=== PATIENT | male | born 1955 | race African-American/Black ===

== ENCOUNTER 2016-09-19 11:33 | Emergency (ER) | payer MEDICARE ==
[2016-09-19 11:43] VITALS: BP 129/88
[2016-09-19] MEDS ORDERED: ACETAMINOPHEN 325 MG TABLET PO ONE (12:26)
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
== END 2016-09-19 13:17 | disposition home or self-care (01) ==
LOC: ER 11:33
DX: S59.912A Unspecified injury of left forearm, initial encounter (principal); R03.0 Elevated blood-pressure reading, without diagnosis of hypertension; W20.8XXA Other cause of strike by thrown, projected or falling object, initial encounter; Y93.H2 Activity, gardening and landscaping; Y92.007 Garden or yard of unspecified non-institutional (private) residence as the place of occurrence of the external cause; G89.29 Other chronic pain; M54.9 Dorsalgia, unspecified; M25.569 Pain in unspecified knee; M54.2 Cervicalgia; E10.9 Type 1 diabetes mellitus without complications
CPT/HCPCS: 99283; 73090; A9270

== ENCOUNTER 2017-06-28 20:15 | Emergency (ER) | payer OTHER, MEDICARE ==
--- NOTE | 2017-06-28 20:47 | ER Document Report ---
ED Medical Screen (RME) - General Chief Complaint: Chest Pain Stated Complaint: CHEST PAIN Time Seen by Provider: 06/28/17 20:46 Mode of Arrival: Wheelchair Information source: Patient, Relative TRAVEL OUTSIDE OF THE [place] IN LAST 30 DAYS: No - HPI Patient complains to provider of: cp Onset: This morning - pt with SSCP starting earlier this am. Denies radiation of pain, SOB - Related Data Allergies/Adverse Reactions: No Known Allergies Allergy (Verified 09/19/16 11:41) Past Medical History - Social History Chew tobacco use (# tins/day): No Frequency of alcohol use: None Drug Abuse: None - Past Medical History Cardiac Medical History: Reports: Hx Hypertension Endocrine Medical History: Reports: Hx Diabetes Mellitus Type 1 - REPORTS NO LONGER TAKING INSULIN-10/06 Renal/ Medical History: Denies: Hx Peritoneal Dialysis Past Surgical History: Reports: Hx Orthopedic Surgery - C3-4 surgery, knee surgery - Immunizations Hx Diphtheria, Pertussis, Tetanus Vaccination: Yes Physical Exam - Vital signs Vitals: Temp Pulse Resp BP Pulse Ox 98.8 F 83 16 129/84 H 96 06/28/17 20:31 06/28/17 20:31 06/28/17 20:31 06/28/17 20:31 06/28/17 20:31 Course - Vital Signs Vital signs: Temp Pulse Resp BP Pulse Ox 98.8 F 83 16 129/84 H 96 06/28/17 20:31 06/28/17 20:31 06/28/17 20:31 06/28/17 20:31 06/28/17 20:31
--- NOTE | 2017-06-28 21:20 | RADIOLOGY REPORT (SQ) ---
EXAM DESCRIPTION: CHEST PA/LAT COMPLETED DATE/TIME: 06/28/2017 9:11 pm REASON FOR STUDY: cp COMPARISON: None. EXAM PARAMETERS: NUMBER OF VIEWS: two views TECHNIQUE: Digital Frontal and Lateral radiographic views of the chest acquired. RADIATION DOSE: NA LIMITATIONS: none FINDINGS: LUNGS AND PLEURA: No opacities, masses or pneumothorax. No pleural effusion. MEDIASTINUM AND HILAR STRUCTURES: No masses or contour abnormalities. HEART AND VASCULAR STRUCTURES: Heart normal size. No evidence for failure. BONES: No acute findings. HARDWARE: None in the chest. OTHER: No other significant finding. IMPRESSION: NO SIGNIFICANT RADIOGRAPHIC FINDING IN THE CHEST. TECHNICAL DOCUMENTATION: JOB ID: [id number] [employer]- All Rights Reserved
[2017-06-28] MEDS: ASPIRIN 81 MG TABLET, CHEWABLE PO ONE (22:14)
--- NOTE | 2017-06-28 22:14 | ER Document Report ---
ED General - General Chief Complaint: Chest Pain Stated Complaint: CHEST PAIN Time Seen by Provider: 06/28/17 20:46 Mode of Arrival: Wheelchair Notes: Patient is a 62-year-old male who presents with complaint of pain over the left anterior chest. He says it is worse with movement. He also has it when sitting still but when he gets up and moves around hurts. Some sharp pain is easily reproducible when he pushes over the area. Says he did have a little bit of a cough but that has been mild. He said he had similar pain approximately a week ago. He has no history of coronary disease. No family history of coronary disease. He is a diabetic. He does have a history of some hypertension. He does not smoke. Does not drink alcohol. Has had no recent fevers. No vomiting. No diarrhea. Patient also mentions that for a long time he has had some difficulty urinating. He says when he goes to pee he only able to urinate out the small amount. He says he did see Dr. Smith, urologist, for this last year. At that time they were on hold off on using an alpha-zunilda. He says symptoms have since worsened. He has not mentioned the worsening to his [place] doctor or Dr. Smith. He says as far as he knows his prostate cancer markers have been normal. TRAVEL OUTSIDE OF THE [place] IN LAST 30 DAYS: No - Related Data Allergies/Adverse Reactions: No Known Allergies Allergy (Verified 09/19/16 11:41) Past Medical History - General Information source: Patient, Relative - Social History Smoking Status: Never Smoker Chew tobacco use (# tins/day): No Frequency of alcohol use: None Drug Abuse: None Family History: Reviewed & Not Pertinent Patient has suicidal ideation: No Patient has homicidal ideation: No - Past Medical History Cardiac Medical History: Reports: Hx Hypertension Endocrine Medical History: Reports: Hx Diabetes Mellitus Type 1 - REPORTS NO LONGER TAKING INSULIN-10/06 Renal/ Medical History: Denies: Hx Peritoneal Dialysis Past Surgical History: Reports: Hx Orthopedic Surgery - C3-4 surgery, knee surgery - Immunizations Hx Diphtheria, Pertussis, Tetanus Vaccination: Yes Review of Systems - Review of Systems Notes: My Normal Review Basic REVIEW OF SYSTEMS: CONSTITUTIONAL : Denies fever, chills, or sweats. Denies recent illness. EENT: Denies eye, ear, throat, or mouth pain or symptoms. Denies nasal or sinus congestion. CARDIOVASCULAR: Has anterior chest pain. RESPIRATORY: Denies cough, cold, or chest congestion. Denies shortness of breath, difficulty breathing, or wheezing. GASTROINTESTINAL: Denies abdominal pain. Denies nausea, vomiting, or diarrhea. MUSCULOSKELETAL: Denies neck or back pain or joint pain or swelling. SKIN: Denies rash or skin lesions. NEUROLOGICAL: Denies altered mental status or loss of consciousness. Denies headache. Denies weakness or paralysis or loss of use of either side. Denies problems with gait or speech. Denies sensory or motor loss. ALL OTHER SYSTEMS REVIEWED AND NEGATIVE. Physical Exam - Vital signs Vitals: Temp Pulse Resp BP Pulse Ox 98.8 F 83 16 129/84 H 96 06/28/17 20:31 06/28/17 20:31 06/28/17 20:31 06/28/17 20:31 06/28/17 20:31 - Notes Notes: General Appearance: Well nourished, alert, cooperative, no acute distress, mild to moderate obvious discomfort. Vitals: reviewed, See vital signs table. Eyes: PERRL, EOMI, Conjuctiva clear Mouth: No decreasd moisture Throat: No tonsillar inflammation, No airway obstruction, No lymphadenopathy Chest wall: Pain is very easily reproducible to palpation over the left anterior chest wall at the costochondral junction. Patient says the pain reproduced with pushing this exact same pain that he has that has brought him to the ER. This pain is easily reproducible with even light pressure applied to the area. Lungs: No wheezing, No rales, No rhonci, No accessory muscle use, good air exchange bilaterally. Heart: Normal rate, Regular rythm, No murmur, no rub Abdomen: Normal BS, soft, No rigidity, No abdominal tenderness, No guarding, no rebound Extremities: strength 5/5 in all extremities, good pulses in all extremities, no swelling or tenderness in the extremities, no edema. Skin: warm, dry, appropriate color, no rash Neuro: speech clear, oriented x 3, normal affect, responds appropriately to questions. Course - Re-evaluation Re-evalutation: 06/29/17 02:15 Patient's EKG troponin and delta troponin were negative. Patient looks very well. His chest pain is pinpoint over the left costochondral junction easily reproducible palpation. Suspect it is musculoskeletal. He does have risk factors. Based on his age and risk factors he has a heart score of 3. I talked him at length about this and informed him that this means he has a 1-1/2 % chance of a serious event in the next 6 weeks. I informed him that I therefore feel safe for him to follow-up outpatient with development officer for reevaluation. Patient is very agreeable to this and feels well and agrees with the plan. I will also have the patient follow back up with his urologist, Dr. Smith, in regards to his urinary frequency. Patient's urinalysis does not show signs of infection. Patient strongly encouraged to return to ER immediately if he has worsening chest pain, change in location of chest pain, difficulty breathing, fevers, or feels unwell. Patient agrees with plan and will be discharged home. Dictation of this chart was performed using voice recognition software; therefore, there may be some unintended grammatical errors. - Vital Signs Vital signs: Temp Pulse Resp BP Pulse Ox 98.8 F 83 12 134/85 H 98 06/28/17 20:31 06/28/17 20:31 06/28/17 22:23 06/28/17 22:23 06/28/17 22:23 - Laboratory Result Diagrams: 06/28/17 22:20 06/28/17 22:20 Laboratory results interpreted by me: 06/28/17 06/28/17 06/28/17 22:20 22:20 23:48 Plt Count 133 L Sodium 135.7 L Glucose 386 H Urine Glucose (UA) >=500 H - EKG Interpretation by Me Additional EKG results interpreted by me: 06/28/17 22:13 EKG is reviewed and interpreted by me. EKG shows normal sinus with a rate of [address] segment elevation or depression. No ischemic T-wave inversions. NE interval, QRS duration, QTc intervals are within normal range. No old EKG available for comparison. Discharge - Discharge Clinical Impression: Urinary urgency, Hyperglycemia Chest pain Qualifiers: Chest pain type: unspecified Qualified Code(s): R07.9 - Chest pain, unspecified Condition: Good Disposition: HOME, SELF-CARE Additional Instructions: Your EKG and blood work looking at your heart is normal appearing. I suspect your pain is musculoskeletal based on the fact that it is easily reproducible with palpation and your cardiac workup is normal. Despite your negative workup it is still very important you follow up closely with the development officer for revaluation and possible out patient stress testing. Please return to the ER immediately if your pain worsens, changes in locatin, you have difficulty breathing, or if you feel that you are worsening. Please follow up with Dr. Smith in regards to your urinary difficulties. Referrals: RADHA LUGO MD [ACTIVE STAFF] - 06/30/17
[2017-06-28 22:37] LABS: ABSOLUTE BASOPHILS # (AUTO) 0.1 10^3/uL (0.0-0.2); ABSOLUTE EOSINOPHILS # (AUTO) 0.1 10^3/uL (0.0-0.6); ABSOLUTE LYMPHOCYTES (AUTO) 2.8 10^3/uL (0.5-4.7); ABSOLUTE MONOCYTES (AUTO) 0.6 10^3/uL (0.1-1.4); ABSOLUTE NEUT (AUTO) 5.9 10^3/uL (1.7-8.2); EOSINOPHILS % (AUTO) 0.9 % (0-6); HEMATOCRIT 43.4 % (37.9-51.0); HEMOGLOBIN 14.8 g/dL (13.5-17.0); LYMPHOCYTES % (AUTO) 29.3 % (13-45); MEAN CORPUSCULAR HEMOGLOBIN 28.4 pg (27.0-33.4); MEAN CORPUSCULAR HGB CONC 34.1 g/dL (32.0-36.0); MEAN CORPUSCULAR VOLUME 83 fl (80-97); PLATELET COUNT 133 10^3/uL (150-450); RED BLOOD COUNT 5.21 10^6/uL (4.35-5.55); RED CELL DISTRIBUTION WIDTH 13.6 % (11.5-14.0); SEGMENTED NEUTROPHILS % (AUTO) 62.8 % (42-78); TOTAL CELLS COUNTED % (AUTO) 100 %; WHITE BLOOD COUNT 9.5 10^3/uL (4.0-10.5)
[2017-06-28] MEDS ORDERED: HYDROCODONE/ACETAMINOPHEN 5-325 MG TABLET PO ONE (22:39)
--- NOTE | 2017-06-28 22:40 | EKG REPORT ---
SEVERITY:- OTHERWISE NORMAL ECG - SINUS RHYTHM BORDERLINE LEFT AXIS DEVIATION : Confirmed by: Sydney Cunningham 28-Jun-2017 22:39:47
[2017-06-28 22:52] LABS: ALANINE AMINOTRANSFERASE 25 U/L (21-72); ALBUMIN 4.6 g/dL (3.5-5.0); ALKALINE PHOSPHATASE 93 U/L (38-126); ANION GAP 14 (5-19); ASPARTATE AMINO TRANSFERASE 18 U/L (17-59); BILIRUBIN,DIRECT 0.2 mg/dL (0.0-0.4); BILIRUBIN,TOTAL 0.6 mg/dL (0.2-1.3); BLOOD UREA NITROGEN 12 mg/dL (7-20); CALCIUM 9.9 mg/dL (8.4-10.2); CARBON DIOXIDE 24 mmol/L (22-30); CHLORIDE 98 mmol/L (98-107); CREATINE KINASE 159 U/L (55-170); GLUCOSE 386 mg/dL (75-110); POTASSIUM 4.8 mmol/L (3.6-5.0); SODIUM 135.7 mmol/L (137-145); TOTAL PROTEIN 7.5 g/dL (6.3-8.2)
[2017-06-28 23:04] LABS: CREATINE KINASE MB 0.56 ng/mL (<4.55)
[2017-06-28 23:15] LABS: TROPONIN I < 0.012 ng/mL
[2017-06-29 00:08] LABS: APPEARANCE,URINE CLEAR; BILIRUBIN,URINE NEGATIVE (NEGATIVE); COLOR,URINE YELLOW; GLUCOSE, URINE >=500 mg/dL (NEGATIVE); KETONES,URINE NEGATIVE (NEGATIVE); LEUKOCYTE ESTERASE,URINE NEGATIVE (NEGATIVE); NITRITE,URINE NEGATIVE (NEGATIVE); PROTEIN,URINE NEGATIVE (NEGATIVE); URINE SPECIFIC GRAVITY 1.032; UROBILINOGEN,URINE NEGATIVE mg/dL (<2.0)
[2017-06-29] MEDS: INSULIN REG, HUMAN 100 UNIT/ML 3 ML VIAL (PYX) SUBCUT ONE (00:18)
[2017-06-29] MEDS: KETOROLAC TROMETHAMINE INJ/PF 30 MG/1 ML SDV IV ONE (00:21)
[2017-06-29 02:43] VITALS: BP 121/91
== END 2017-06-29 02:48 | disposition home or self-care (01) ==
LOC: ER 20:15
DX: R07.89 Other chest pain (principal); E10.65 Type 1 diabetes mellitus with hyperglycemia; R05 Cough; I10 Essential (primary) hypertension; R35.0 Frequency of micturition; R39.15 Urgency of urination
CPT/HCPCS: 93005; 99285; 96374; 36415; 82553; 82962; 82550; 85025; 80053; 81001; 84484; 71046; 93010; J1885; J1815

== ENCOUNTER 2017-10-21 12:13 | Emergency (ER) | payer OTHER, MEDICARE ==
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
[2017-10-21] MEDS ORDERED: OXYCODONE-ACETAMINOPHEN 5-325 MG TABLET PO ONE (14:29)
[2017-10-21 14:32] VITALS: BP 132/82
== END 2017-10-21 14:46 | disposition home or self-care (01) ==
LOC: ER 12:13
DX: M25.512 Pain in left shoulder (principal); R10.32 Left lower quadrant pain; R10.31 Right lower quadrant pain; V87.7XXA Person injured in collision between other specified motor vehicles (traffic), initial encounter; E10.9 Type 1 diabetes mellitus without complications
CPT/HCPCS: 99284; 82962; 73030; L3650

== ENCOUNTER → 2017-11-04 | Outpatient (CLI) | payer MEDICARE ==
--- NOTE | 2017-11-06 10:51 | RADIOLOGY REPORT (SQ) ---
EXAM DESCRIPTION: MRI LT UPPER JOINT WITHOUT COMPLETED DATE/TIME: 11/04/2017 1:17 pm REASON FOR STUDY: PAIN IN LEFT SHOULDER (M25.512) M25.512 PAIN IN LEFT SHOULDER COMPARISON: Left shoulder plain films 10/21/2017 TECHNIQUE: Left shoulder images acquired and stored on PACS. Multiplanar imaging to include fat sens itive sequences such as T1, water sensitive sequences such as FST2/STIR, cartilage sensitive sequence s such as FSPD/gradient-echo sequences. LIMITATIONS: None. FINDINGS: BONE MARROW AND CORTEX: No marrow signal abnormality worrisome for occult fracture. There is metallic artifact along the superior glenoid labrum from old superior labral repair. Artifact ov er the anterior right humeral head at the upper edge bicipital groove likely from remote prior long-h ead biceps tenodesis JOINT OR BURSAL EFFUSION: Small amount of fluid in the subacromial/subdeltoid bursa GLENO-HUMERAL ARTICULATION: Normal articulation. No subluxation. No cystic change. No osteophytes or cartilage loss. ACROMION AND AC JOINT: Type 2 acromion with very bulky acromioclavicular joint bony spurring, synovi al thickening. There is edema in the distal clavicle and acromion, with narrowing of the subacromial space best shown on sagittal images 7-14, and coronal images 8-13. ROTATOR CUFF AND INTERVAL: Rotator interval is diffusely indistinct from prior tear. This is best sh own on sagittal fat-sat T2 images 5-12. There is tendinopathy along the upper half of the subscapula ris tendon. Mild undersurface tendinopathy is present along the anterior edge, distal supraspinatus tendon. Mild diffuse undersurface tendinopathy of the infraspinatus tendon. LABRUM AND BICEPS LABRAL COMPLEX: Superior labrum is diffusely fragmented. Old labrum tacks are pr esent. Inferior labrum intact. Intra-articular long head biceps tendon not identified, likely remot e prior tenodesis in the upper aspect bicipital groove. REMAINDER OF LABRUM AND IGHL : No gross tear or paralabral cyst formation. Labral evaluation is less than optimal without joint distention. No thickening of IGHL to suggest adhesive capsulitis. PERIARTICULAR AND ADJACENT SOFT TISSUES: No masses or abnormal nodes. OTHER: No other significant finding. IMPRESSION: Bulky acromioclavicular joint hypertrophy and arthritis Evidence of prior long head biceps tendon and superior labral surgery. Inferior labrum intact Tendinopathy in the superior half of the subscapularis tendon and distal most anterior attachment sup raspinatus tendon. Mild undersurface tendinopathy distal infraspinatus tendon. TECHNICAL DOCUMENTATION: JOB ID: [id number] [employer]- All Rights Reserved Reading location - IP/workstation name: [email or web address]
== END ==
LOC: RAD 12:28
PROVIDERS: ATTEND Orthopaedic Surgery
DX: M25.512 Pain in left shoulder (principal); M13.812 Other specified arthritis, left shoulder

== ENCOUNTER 2017-11-09 20:36 | Emergency (ER) | payer OTHER, MEDICARE ==
[2017-11-09 21:04] VITALS: BP 129/82
--- NOTE | 2017-11-09 22:18 | ER Document Report ---
ED Foreign Body - General TRAVEL OUTSIDE OF THE [place] IN LAST 30 DAYS: No <ISAÍAS FERRARO - Last Filed: 11/09/17 22:18> <SARAH PEREZ - Last Filed: 11/10/17 06:11> - General Chief Complaint: Foreign Body in Eye Stated Complaint: EYE PROBLEM Time Seen by Provider: 11/09/17 22:12 Notes: Patient is a 62-year-old male comes emergency department for chief complaint of possible foreign body and possible scratch to his right eye. He states he was working outside, felt something uncomfortable in his eye, his eye started watering, he went into the house and his noted a small piece of what looked like a splinter, she states that she wiped his eye with a damp paper towel and thinks she removed it but he is still complaining of pain. He denies any visual loss, he does not wear contacts, he denies any discolored discharge, he denies any other complaints. (SARAH PEREZ) - Related Data Allergies/Adverse Reactions: No Known Allergies Allergy (Verified 10/21/17 12:39) Past Medical History - Social History Smoking Status: Never Smoker Family History: Reviewed & Not Pertinent Patient has suicidal ideation: No Patient has homicidal ideation: No - Past Medical History Cardiac Medical History: Reports: Hx Hypertension Endocrine Medical History: Reports: Hx Diabetes Mellitus Type 1 Renal/ Medical History: Denies: Hx Peritoneal Dialysis Past Surgical History: Reports: Hx Orthopedic Surgery - C3-4 surgery, knee surgery - Immunizations Hx Diphtheria, Pertussis, Tetanus Vaccination: Yes <ISAÍAS FERRARO - Last Filed: 11/09/17 22:18> - General Information source: Patient - Social History Smoking Status: Never Smoker Frequency of alcohol use: None Lives with: Family - Immunizations Hx Diphtheria, Pertussis, Tetanus Vaccination: Yes <SARAH PEREZ - Last Filed: 11/10/17 06:11> Review of Systems - Review of Systems Constitutional: No symptoms reported EENT: See HPI Cardiovascular: No symptoms reported Respiratory: No symptoms reported Gastrointestinal: No symptoms reported Genitourinary: No symptoms reported Male Genitourinary: No symptoms reported Musculoskeletal: No symptoms reported Skin: No symptoms reported Hematologic/Lymphatic: No symptoms reported Neurological/Psychological: No symptoms reported <SARAH PEREZ - Last Filed: 11/10/17 06:11> Physical Exam <ISAÍAS FERRARO - Last Filed: 11/09/17 22:18> <SARAH PEREZ - Last Filed: 11/10/17 06:11> - Vital signs Vitals: Temp Pulse Resp BP Pulse Ox 98.5 F 92 16 129/82 H 96 11/09/17 21:03 11/09/17 21:03 11/09/17 21:03 11/09/17 21:03 11/09/17 21:03 - Notes Notes: GENERAL: Alert, interacts well. No acute distress. HEAD: Normocephalic, atraumatic. EYES: Irritation of the sclera of the right eye, a tiny foreign body noted over the inferior aspect on the cornea, this was easily removed completely with a Q- tip, no embedded foreign body, negative Maryam sign, questionable tiny amount of fluorescein uptake over the sclera but not over the cornea, normal pupil, no hyphema, normal eye examination otherwise. ENT: Oral mucosa moist, tongue midline. NECK: Full range of motion. Supple. Trachea midline. LUNGS: Clear to auscultation bilaterally, no wheezes, rales, or rhonchi. No respiratory distress. HEART: Regular rate and rhythm. No murmur ABDOMEN: Soft, non-tender. Non-distended. Bowel sounds present in all 4 quadrants. EXTREMITIES: Moves all 4 extremities spontaneously. No edema, normal radial and dorsalis pedis pulses bilaterally. No cyanosis. BACK: no cervical, thoracic, lumbar midline tenderness. No saddle anesthesia, normal distal neurovascular exam. NEUROLOGICAL: Alert and oriented x3. Normal speech. [cranial nerves II through XII grossly intact]. PSYCH: Normal affect, normal mood. SKIN: Warm, dry, normal turgor. No rashes or lesions noted. (SARAH PEREZ) Course <ISAÍAS FERRARO - Last Filed: 11/09/17 22:18> <SARAH PEREZ - Last Filed: 11/10/17 06:11> - Re-evaluation Re-evalutation: Small foreign body removed easily with Q-tip, no embedded foreign body, no significant signs of trauma, questionable scratch over the sclera, no additional concerns or abnormalities noted, treated with Polytrim which he was sent home with, discussed ophthalmology follow-up and return precautions, patient states understanding and agreement. (SARAH PEREZ) - Vital Signs Vital signs: Temp Pulse Resp BP Pulse Ox 98.5 F 92 16 129/82 H 96 11/09/17 21:03 11/09/17 21:03 11/09/17 21:03 11/09/17 21:03 11/09/17 21:03 Discharge <ISAÍAS FERRARO - Last Filed: 11/09/17 22:18> <SARAH PEREZ - Last Filed: 11/10/17 06:11> - Discharge Clinical Impression: Eye foreign body Qualifiers: Encounter type: initial encounter Laterality: right Qualified Code(s): T15.91XA - Foreign body on external eye, part unspecified, right eye, initial encounter Condition: Stable Disposition: HOME, SELF-CARE Additional Instructions: Examination showed a small foreign body remaining in the eye and what appears to be a small abrasion to the white part of your eye. Use antibiotic drops given, 1 drop 4 times a day for the next 5 days, use the pain medication given tonight if needed. This should resolve with time. Follow-up with ophthalmology for recheck and additional management. Return if you worsen including loss of vision, swelling, discolored discharge, or any other concerning symptoms. Referrals: ALVAREZ BURT MD [ACTIVE STAFF] - Follow up tomorrow
[2017-11-09] MEDS ORDERED: TETRACAINE HCL 0.5% OPH SOLN 2 ML ONE (22:58)
[2017-11-09] MEDS ORDERED: HYDROCODONE/ACETAMINOPHEN 5-325 MG (6 TAB/ER DISP) PO PRN (23:08)
[2017-11-09] MEDS ORDERED: TETRACAINE HCL 0.5% OPH SOLN 2 ML OD ONE (23:08)
[2017-11-09] MEDS ORDERED: POLYMYXIN B SULFATE/TMP OPH SOLN 10 ML OD ONE (23:09)
[2017-11-09] MEDS ORDERED: POLYMYXIN B SULFATE/TMP OPH SOLN 10 ML ONE (23:33)
== END 2017-11-10 00:06 | disposition home or self-care (01) ==
LOC: ER 20:36
DX: T15.01XA Foreign body in cornea, right eye, initial encounter (principal); X58.XXXA Exposure to other specified factors, initial encounter; Y92.009 Unspecified place in unspecified non-institutional (private) residence as the place of occurrence of the external cause; E10.9 Type 1 diabetes mellitus without complications; I10 Essential (primary) hypertension
CPT/HCPCS: 99283; J3490

== ENCOUNTER 2017-12-19 00:18 | Emergency (ER) | payer OTHER, MEDICARE ==
--- NOTE | 2017-12-19 00:42 | ER Document Report ---
ED General - General Chief Complaint: High Blood Sugar Stated Complaint: BLOOD SUGAR ISSUE Time Seen by Provider: 12/19/17 00:31 Notes: Patient is a 62-year-old male who presents with complaint of altered mental status. says altered mental status has been ongoing since yesterday ( Tuesday) morning. Sorry night she notices blood sugars running high. She says he has been taking his insulin as prescribed. The only insulin he has not had this tonight's Lantus dose. She is unsure the dose of Lantus. Blood sugar has since improved tonight. Blood sugar was 400 and a months. It is now in the 200s. She denies any recent fevers. Patient himself is somnolent but is able to wake up answer some questions. He denies any pain except for slight headache. He denies any chest pain. Denies any fevers. No abdominal pain. No vomiting. Patient's says this has never happened to him before and this is completely atypical for him. TRAVEL OUTSIDE OF THE [place] IN LAST 30 DAYS: No - Related Data Allergies/Adverse Reactions: No Known Allergies Allergy (Verified 10/21/17 12:39) Past Medical History - Social History Smoking Status: Never Smoker Frequency of alcohol use: None Drug Abuse: None Family History: Reviewed & Not Pertinent - Past Medical History Cardiac Medical History: Reports: Hx Hypertension Endocrine Medical History: Reports: Hx Diabetes Mellitus Type 1 Renal/ Medical History: Denies: Hx Peritoneal Dialysis Past Surgical History: Reports: Hx Orthopedic Surgery - C3-4 surgery, knee surgery - Immunizations Hx Diphtheria, Pertussis, Tetanus Vaccination: Yes Physical Exam - Vital signs Vitals: Pulse Ox 96 12/19/17 00:20 - Notes Notes: General Appearance: Well nourished, somnolent but arousable., cooperative, no acute distress, no obvious discomfort. Vitals: reviewed, See vital signs table. Head: no swelling or tenderness to the head Eyes: PERRL, EOMI, Conjuctiva clear Mouth: No decreasd moisture Throat: No tonsillar inflammation, No airway obstruction, No lymphadenopathy Neck: Supple, no neck tenderness Lungs: No wheezing, No rales, No rhonci, No accessory muscle use, good air exchange bilaterally. Heart: Normal rate, Regular rythm, No murmur, no rub Abdomen: Normal BS, soft, No rigidity, No abdominal tenderness, No guarding, no rebound, no abdominal masses, no organomegaly Extremities: strength 5/5 in all extremities, good pulses in all extremities, no swelling or tenderness in the extremities, no edema. Skin: warm, dry, appropriate color, no rash Neuro: speech clear, oriented x 3, normal affect, responds appropriately to questions. Patient lying in bed with eyes closed. Patient is somnolent but will awaken to verbal stimuli. He will answer questions but then will close his eyes soon as he is done answering questions. Cranial nerves II through XII are intact. He has good strength in all 4 extremities. Gait not tested. Course - Re-evaluation Re-evalutation: 12/19/17 02:36 Patient is now awake and alert and completely back to his normal baseline. Patient feels as his blood sugar improved his mental status also improved. His agrees. His urine drug screen does show benzodiazepines. Patient says he occasionally takes Valium for sleep but says he has not had this in over 24 hours does not think this is playing a role. He did have a increasing his gabapentin but this was a few months ago and has not had any problems since increase until the last 24 hours. Patient again denies any recent fevers or illness and denies any pain at this time. CT scan of his head is not normal. The only lab that is pending at this time is his troponin. I encourage patient to let me watch him until 6 AM to make sure that his mental status and neurologic function continues to be back to baseline without any relapses. Patient agrees with this plan. 12/20/17 01:17 On my 6am exam the patient's mental status continued to be at normal baseline. Is able stand up without any balance issues and move around normally. He continued very well and was symptom-free at that time. Taking the Valium but I suspect that he may have accidentally taken his volume based on the somnolence he had when he first arrived. His presentation is very similar to that of a accidental benzo use or overdose. This possibly could be related to his high blood sugars; however, I think is less likely being that when he arrived his blood sugar was not so exceedingly high that it would be causing somnolence like she is having. This point patient otherwise looks well. Is no evidence of infection. He is fully neurologically intact. He never had any weakness that was focal to one area of his body versus the other. I do not suspect stroke. At this time I feel he is safe to be discharged home but informed him he must return to ER if he has any recurrence of his symptoms. Patient agrees with plan will be discharged home. Dictation of this chart was performed using voice recognition software; therefore, there may be some unintended grammatical errors. - Vital Signs Vital signs: Temp Pulse Resp BP Pulse Ox 98.0 F 15 133/81 H 99 12/19/17 06:09 12/19/17 06:01 12/19/17 06:01 12/19/17 06:01 - Laboratory Result Diagrams: 12/19/17 00:20 12/19/17 00:20 Laboratory results interpreted by me: 12/19/17 12/19/17 12/19/17 00:17 00:20 00:20 WBC 10.7 H RDW 14.2 H Glucose 316 H POC Glucose 288 H AST 14 L Urine Glucose (UA) Salicylates < 1.0 L Acetaminophen < 10 L 12/19/17 12/19/17 01:03 02:29 WBC RDW Glucose POC Glucose 265 H AST Urine Glucose (UA) >=500 H Salicylates Acetaminophen Discharge - Discharge Clinical Impression: Hyperglycemia Altered mental status Qualifiers: Altered mental status type: somnolence Qualified Code(s): R40.0 - Somnolence Condition: Good Disposition: HOME, SELF-CARE Additional Instructions: Please take your medications as prescribed. please follow up with your doctor this week for reevaluation. Please return to the ER immediately if you develop severe headache, vomiting, fevers, repeat weakness or confusion, recurrence of high blood sugar not responding to your insulin, or if you have any further concerns. Referrals: EFE DURAN DO [Primary Care Provider] - Follow up as needed
--- NOTE | 2017-12-19 01:20 | RADIOLOGY REPORT (SQ) ---
EXAM DESCRIPTION: CT HEAD WITHOUT IV CONTRAST COMPLETED DATE/TME: 12/19/2017 00:36 CLINICAL HISTORY: altered mental staus COMPARISON: None available TECHNIQUE: Axial CT of the head obtained from the skull apex to the skull base without contrast. FINDINGS: No acute intracranial hemorrhage identified. No mass, mass effect, shift of the midline, abnormal extra-axial fluid collection or CT evidence of acute ischemic change identified. The ventricular system and sulcal spaces have normal size and morphology.. Scattered areas of hypodensity throughout the supratentorial white matter are nonspecific and may be related to chronic small vessel ischemic change. The visualized paranasal sinuses and the mastoids are clear. No skull fracture identified. Visualized orbits and globes are unremarkable. Atherosclerotic calcification of the intracranial internal carotid arteries. DLP: 963.96 mGy-cm IMPRESSION: 1. No acute intracranial abnormality by CT criteria. This exam was performed according to our departmental dose-optimization program, which includes automated exposure control, adjustment of the mA and/or kV according to patient size and/or use of iterative reconstruction technique.
[2017-12-19 01:36] LABS: APPEARANCE,URINE CLEAR; BILIRUBIN,URINE NEGATIVE (NEGATIVE); COLOR,URINE YELLOW; GLUCOSE, URINE >=500 mg/dL (NEGATIVE); KETONES,URINE NEGATIVE (NEGATIVE); LEUKOCYTE ESTERASE,URINE NEGATIVE (NEGATIVE); NITRITE,URINE NEGATIVE (NEGATIVE); PROTEIN,URINE NEGATIVE (NEGATIVE); URINE SPECIFIC GRAVITY 1.029; UROBILINOGEN,URINE NEGATIVE mg/dL (<2.0)
--- NOTE | 2017-12-19 01:38 | RADIOLOGY REPORT (SQ) ---
EXAM DESCRIPTION: XR CHEST 1 VIEW COMPLETED DATE/TME: 12/19/2017 00:36 CLINICAL HISTORY: altered mental staus COMPARISON: 06/28/2017 FINDINGS: Single frontal view of the chest. The cardiomediastinal silhouette has normal size and contour. No consolidation, pneumothorax, or pleural effusion. No displaced rib fractures identified. Leads overlie the chest. Upper abdominal soft tissues are unremarkable. IMPRESSION: 1. No acute pulmonary process identified.
[2017-12-19 01:52] LABS: URINE AMPHETAMINES SCREEN NEGATIVE; URINE BARBITURATES SCREEN NEGATIVE; URINE BENZODIAZEPINES SCREEN UNCONFIRMED POSITIVE; URINE COCAINE SCREEN NEGATIVE; URINE MARIJUANA (THC) SCREEN NEGATIVE; URINE METHADONE SCREEN NEGATIVE; URINE PHENCYCLIDINE SCREEN NEGATIVE
[2017-12-19 01:54] LABS: ABSOLUTE LYMPHOCYTES (AUTO) 2.9 10^3/uL (0.5-4.7); ABSOLUTE MONOCYTES (AUTO) 0.6 10^3/uL (0.1-1.4); ABSOLUTE NEUT (AUTO) 7.2 10^3/uL (1.7-8.2); BASOPHILS % (AUTO) 0.1 % (0-2); EOSINOPHILS % (AUTO) 0.5 % (0-6); HEMATOCRIT 44.9 % (37.9-51.0); HEMOGLOBIN 15.2 g/dL (13.5-17.0); LYMPHOCYTES % (AUTO) 26.6 % (13-45); MEAN CORPUSCULAR HEMOGLOBIN 27.7 pg (27.0-33.4); MEAN CORPUSCULAR HGB CONC 33.7 g/dL (32.0-36.0); MEAN CORPUSCULAR VOLUME 82 fl (80-97); MONOCYTES % (AUTO) 5.3 % (3-13); PLATELET COUNT 182 10^3/uL (150-450); RED BLOOD COUNT 5.46 10^6/uL (4.35-5.55); RED CELL DISTRIBUTION WIDTH 14.2 % (11.5-14.0); SEGMENTED NEUTROPHILS % (AUTO) 67.5 % (42-78); TOTAL CELLS COUNTED % (AUTO) 100 %; WHITE BLOOD COUNT 10.7 10^3/uL (4.0-10.5)
[2017-12-19 02:13] LABS: VENOUS BLOOD BASE EXCESS -1.4 mmol/L; VENOUS BLOOD HCO3 24.7 mmol/L (20-32); VENOUS BLOOD PCO2 46.7 mmHg (35-63); VENOUS BLOOD PH 7.34 (7.30-7.42)
[2017-12-19 02:26] LABS: ALANINE AMINOTRANSFERASE 24 U/L (21-72); ALBUMIN 3.8 g/dL (3.5-5.0); ALKALINE PHOSPHATASE 82 U/L (38-126); ANION GAP 10 (5-19); ASPARTATE AMINO TRANSFERASE 14 U/L (17-59); BILIRUBIN,DIRECT 0.2 mg/dL (0.0-0.4); BILIRUBIN,TOTAL 0.4 mg/dL (0.2-1.3); BLOOD UREA NITROGEN 18 mg/dL (7-20); CALCIUM 9.2 mg/dL (8.4-10.2); CARBON DIOXIDE 26 mmol/L (22-30); CHLORIDE 103 mmol/L (98-107); GLUCOSE 316 mg/dL (75-110); POTASSIUM 4.6 mmol/L (3.6-5.0); SODIUM 139.1 mmol/L (137-145); TOTAL PROTEIN 7.2 g/dL (6.3-8.2)
[2017-12-19 02:27] LABS: ACETAMINOPHEN < 10 ug/mL (10-30); ALCOHOL < 10 mg/dL (NONE DETECTED); SALICYLATE < 1.0 mg/dL (2.0-20.0)
[2017-12-19] MEDS ORDERED: INSULIN GLARGINE,HUM.REC.ANLOG 1,000 UNIT/10 ML UNIT SUBCUT ONE (02:36)
[2017-12-19 06:29] VITALS: BP 133/81
== END 2017-12-19 06:09 | disposition home or self-care (01) ==
LOC: ER 00:18
DX: E10.65 Type 1 diabetes mellitus with hyperglycemia (principal); R40.0 Somnolence; I10 Essential (primary) hypertension; Z79.899 Other long term (current) drug therapy
CPT/HCPCS: 99285; 36415; 82962; 80307 ×4; 83735; 85025; 80053; 81001; 84484; 82803; 71045; 70450; J1815